=== PATIENT | female | born 1975 | race Caucasian/White ===

== ENCOUNTER 2019-04-02 16:11 | Emergency (ER) | payer OTHER ==
[2019-04-02 16:19] VITALS: BP 146/71; PULSE 117; RESP 20; TEMP 99
--- NOTE | 2019-04-02 17:01 | XR ---
EXAMINATION TYPE: XR finger LT DATE OF EXAM: 04/02/2019 COMPARISON: NONE HISTORY: Pain and swelling TECHNIQUE: 3 views FINDINGS: There is mild soft tissue swelling around the PIP joint. I see no fracture nor dislocation. Joint spaces are fairly normal. IMPRESSION: Soft tissue swelling around the PIP joint of the middle finger. No fracture.
--- NOTE | 2019-04-02 17:07 | ED ---
Upper Extremity HPI - General Chief Complaint: Extremity Injury, Upper Stated Complaint: Finger pain Time Seen by Provider: 04/02/19 16:20 Source: patient Mode of arrival: ambulatory Limitations: no limitations - History of Present Illness Initial Comments: 43-year-old female presenting for finger pain and left middle finger. Patient states he got caught in her dog collar yesterday. Patient states her splint bruising over the middle joint of the left middle finger. Patient states she is able to range her feels tight. Patient denies any strength deficits. Patient denies any other areas of injury denies any hand pain. Remaining review of systems negative. Upon arrival patient appears on the signs acute distress complains of areas of injury. - Related Data Previous Rx's Medication Instructions Recorded Acetaminophen-Codeine 300-30mg 1 each PO Q6H PRN #14 tablet 01/19/14 [Tylenol #3] Ibuprofen [Motrin] 800 mg PO Q8HR #30 tab 01/19/14 Allergies Allergy/AdvReac Type Severity Reaction Status Date / Time No Known Allergies Allergy Verified 04/02/19 16:18 Review of Systems ROS Statement: Those systems with pertinent positive or pertinent negative responses have been documented in the HPI. ROS Other: All systems not noted in ROS Statement are negative. Past Medical History Past Medical History: No Reported History History of Any Multi-Drug Resistant Organisms: None Reported Past Surgical History: No Surgical Hx Reported Past Psychological History: No Psychological Hx Reported Smoking Status: Current every day smoker Past Alcohol Use History: Heavy Past Drug Use History: None Reported General Exam - General Exam Comments Initial Comments: General: The patient is awake and alert, in no distress, and does not appear acutely ill. Eye: Pupils are equal, round and reactive to light, extra-ocular movements are intact. No nystagmus. There is normal conjunctiva bilaterally. No signs of i cterus. Cardiovascular: There is a regular rate and rhythm. No murmur, rub or gallop is appreciated. Respiratory: Lungs are clear to auscultation, respirations are non-labored, breath sounds are equal. No wheezes, stridor, rales, or rhonchi. Musculoskeletal: Bruising over the PIP joint. Able to flex extend at the MCP DIP PIP joint small 5 digits of left hand. Pain with range of motion of the left middle finger PIP joint. Strength 5/5. Sensation intact. Radial pulses equal bilaterally 2+. <3 second capillary refil. Neurological: A&O x 3. CN II-XII intact grossly, There are no obvious motor or sensory deficits. Coordination appears grossly intact. Speech is normal. Skin: Skin is warm and dry and no rashes or lesions are noted. Psychiatric: Cooperative, appropriate mood & affect, normal judgment. Limitations: no limitations Course Vital Signs 04/02/19 16:16 Temperature 99.0 F Pulse Rate 117 H Respiratory 20 Rate Blood Pressure 146/71 O2 Sat by Pulse 99 Oximetry Medical Decision Making - Medical Decision Making 43-year-old female presented emergency for bruising over the PIP joint of the left middle finger. XR negative for osseous process. Physical examination there is no clinical findings suggestive tendon injury. Patient is to immediately present to ER if she has limitations and strength or range of motion of the digit otherwise at this time feel patient is stable for discharge with primary care follow-up. Patient was placed in splint. Rice instructions discussed patient was discharged appearing well Disposition Clinical Impression: Finger contusion, Injury of left middle finger, Finger pain Disposition: HOME SELF-CARE Condition: Good Instructions (If sedation given, give patient instructions): Contusion in Adults (ED) Additional Instructions: Please use medication as discussed. Please follow-up with family doctor in the 1-2 days, if limitations in range of motion of digit please seek orthopedic ev aluation in next week . Please return to emergency room if the symptoms increase or worsen or for any other concerns.next 2 days Is patient prescribed a controlled substance at d/c from ED?: No Referrals: None,Stated [Primary Care Provider] - 1-2 days Time of Disposition: 17:04
== END 2019-04-02 17:22 | disposition home or self-care (01) ==
LOC: EC 16:11
DX: S60.032A Contusion of left middle finger without damage to nail, initial encounter (principal); F17.200 Nicotine dependence, unspecified, uncomplicated; W22.8XXA Striking against or struck by other objects, initial encounter
CPT/HCPCS: 99283